=== PATIENT | male | born 1990 | race Caucasian/White ===

== ENCOUNTER 2022-12-30 20:28 | Emergency (ER) | payer BC, SELFPAY ==
[2022-12-30 20:30] VITALS: BP 133/86; PULSE 84; RESP 16; TEMP 36.9; O2SAT 98; BMI 26.7
--- NOTE | 2022-12-30 20:45 | ED.VIS.GI ---
HPI HPI - GI History of Present Illness Chief Complaint: Diarrhea Informant: patient Narrative Narrative: Sent from urgent care for evaluation. She reports 4 days of diarrhea. States day 1 initial attempted bowel movement noted only blood. History of hemorrhoids. That resolved. Clinic started having multiple bouts of loose stools nonbloody. Had 2 today. No recent antibiotics. No fevers. No nausea or vomiting. Tolerating oral fluids. He went to urgent care, he reports on exam when she pushed there was pain. He was sent here for concerns of diverticulitis. He has no fevers. There was no other sick contacts. Prior similar symptoms: No PFSH PFSH Home Medications omeprazole 20 mg tablet,delayed release 20 mg PO DAILY 12/30/22 [History Last Taken Unknown] sertraline 100 mg tablet 100 mg PO DAILY 12/30/22 [History Last Taken Unknown] Allergy/AdvReac Type Severity Reaction Status Date / Time No Known Allergies Allergy Verified 12/30/22 20:31 Social History Smoking Status: Never smoker ROS ROS ED Constitutional Constitutional ED: Denies chills, fever(s) or sweats Eyes Eyes: Denies change in vision ENT ENT ED: Denies dysphagia or sore throat Cardiovascular Cardiovascular: Denies chest pain, leg edema, palpitations or racing heartbeat Respiratory/Chest Respiratory/Chest: Denies cough, dyspnea or dyspnea on exertion Gastrointestinal Gastrointestinal: Reports diarrhea; Denies abdominal pain, nausea or vomiting Genitourinary Genitourinary ED: Denies dysuria, hematuria or urinary frequency Musculoskeletal Musculoskeletal: Denies back pain, extremity pain or neck pain Integumentary Denies rash or wounds Neurologic Neurologic: Denies headache(s), paresthesias or weakness EXAM Physical Exam Const Vital Signs: 12/30/22 20:30 12/30/22 21:56 Temperature 98.4 F Temperature Source Temporal Pulse Rate 84 80 Respiratory Rate 16 16 Blood Pressure 133/86 H 130/80 H Blood Pressure Mean 101 Pulse Ox 98 Oxygen Delivery Method Room Air Positive well nourished and well developed General Appearance ED: well developed and NAD HEENT Reports moist mucous membranes normocephalic and atraumatic Eyes PERRL, EOMs intact bilaterally and conjunctivae normal General Eye ED: Yes normal appearance of both eyes Neck no lymphadenopathy and supple General: Negative for tenderness Chest Wall Chest: Negative for tenderness Resp normal respiratory effort and normal air movement Effort and Inspection: symmetric chest movement; Negative for respiratory distress Cardio regular rate, regular rhythm and no murmurs Peripheral Pulses: pulses 2+ throughout GI normal to inspection, nondistended, normoactive bowel sounds GI Narrative: Very mild tenderness to deep palpation left lower quadrant, no guarding or rebound. Negative Calderon's McBurney's tenderness. Palpation: Negative for guarding or rebound tenderness present Back/Spine no CVA tenderness and no thoracic nor lumbar tenderness Extremity normal to inspection General Extremety ED: Negative for edema or tenderness General Extremity: Negative for edema Neuro oriented x3 and no sensory deficits noted Sensorium / Orientation: awake and alert Skin no rashes or lesions noted and no wounds MDM MDM MDM Narrative Medical decision making narrative: Interventions / MDM: Differential diagnosis: Nonspecific diarrhea, electrolyte abnormalities Diagnosis considered but do not suspect: Diverticulitis, low suspicion due to very minimal tenderness. Afebrile. C. difficile, however no recent antibiotics. My EKG interpretation: N/A Imaging independently reviewed and interpreted by myself: N/A External documents reviewed: N/A Test considered but not ordered:N/A ED course: Patient nonsurgical abdomen. Minimal tenderness to deep palpation. Discussed with patient I do not feel clinically has diverticulitis. He is reassured. I did check labs White count 6 hemoglobin 14.7 electrolytes are normal. Ordered for stools however is unable to provide a stool sample for further testing. Re-evaluation: stable. Stool collection specimen kit sent with patient as he appointment with his PCP in 4 days, discussed if it persist to have a sample today prior so he can be sent to lab for further testing. He did further states with the darker colored stools today he took Pepto-Bismol yesterday. This explains his symptoms. This is not bloody stools. Return precaution discussed. All questions were answered. Disposition discussed with patient/family/significant other: Patient Case discussed with consulting clinician: N/A Lab Data Attestation: I reviewed the patient's lab results. Labs: Laboratory Results - last 24 hr 12/30/22 12/30/22 20:44 20:44 WBC 6.0 RBC 5.05 Hgb 14.7 Hct 43.0 MCV 85.1 MCH 29.1 MCHC 34.2 RDW Std Deviation 39.8 RDW Coeff of Asha 12.9 Plt Count 307 MPV 10.6 Immature Gran % (Auto) 0.200 Neut % (Auto) 39.4 L Lymph % (Auto) 48.7 H Benton % (Auto) 10.0 Eos % (Auto) 1.2 Baso % (Auto) 0.5 Absolute Neuts (auto) 2.4 Absolute Lymphs (auto) 2.91 Nucleated RBC % 0 Sodium 140 Potassium 3.6 Chloride 105 Carbon Dioxide 28.0 Anion Gap 7 BUN 13 Creatinine 1.10 Estim Creat Clear Calc 114.17 Est GFR (MDRD) Af Amer 101 Est GFR (MDRD) Non-Af 83 BUN/Creatinine Ratio 11.8 Glucose 131 H Calcium 8.6 Discharge Plan Triage Chief Complaint: Diarrhea ED Provider: Tobias Birmingham Dx/Rx/DC Orders Clinical Impression: Diarrhea Instructions: ED Diarrhea, Unknown Cause Prescriptions: No Action sertraline 100 mg Tablet 100 mg PO DAILY omeprazole 20 mg Tablet,Delayed Release (Dr/Ec) 20 mg PO DAILY Primary Care Provider: Anthony Shelby Referrals: Anthony Shelby MD [Primary Care Provider] - Keep Alc[facility] appointment Activity Restrictions/Additional Instructions: Your blood work is normal, WBC 6. Normal kidney function, normal electrolytes. Continue oral fluids. Collect stools the day before your doctors visit if you continue to have them for further testing as you are unable to provide a sample here. Return if worsening symptoms. Disposition Disposition: Home, Self Care Discharge Date/Time: 12/30/22 21:59
[2022-12-30 20:56] LABS: Absolute Lymphocyte Count 2.91 X10^3/uL (0.83-4.51); Absolute Neutrophil Count 2.4 X10^3/uL (2.0-7.7); Basophil# 0.03 X10^3/uL; Basophil% 0.5 % (0-1); Eosinophil# 0.07 X10^3/uL; Eosinophils% 1.2 % (0-5); Hemoglobin 14.7 g/dL (13.0-16.5); Lymphocyte # 2.91 X10^3/ul (0.83-4.51); Lymphocyte % 48.7 % (19-41); Mean Corp Hgb Conc 34.2 g/dL (32-36); Mean Corpuscular Hgb 29.1 pg (27.0-32.0); Mean Corpuscular Volume 85.1 fL (80-94); Mean Platelet Vol. 10.6 fl (6.2-12.0); NRBC Flagged by Analyzer 0 % (0-5); Neutrophil # 2.36 X10^3/uL (2.7-7.7); Neutrophil % 39.4 % (47-70); Platelet Count 307 K/mm3 (150-450); RBC Distribution Width CV 12.9 % (11.6-14.6); RBC Distribution Width SD 39.8 fl (35.1-43.9); Red Blood Count 5.05 M/mm3 (4.6-6.2)
[2022-12-30 21:07] LABS: Anion Gap 7 (5-15); BUN 13 mg/dL (7-18); BUN/Creat Ratio 11.8 RATIO (10-20); Calcium,Total 8.6 mg/dL (8.5-10.1); Chloride 105 mmol/L (98-107); EST Glomerular Filtration Rate 83 mL/min (>60); Est Glom Filt Rate - Afr Amer 101 mL/min (>60); Estimated Creatinine Clearance 114.17 ml/min; Glucose 131 mg/dL (74-106); Potassium 3.6 mmol/L (3.5-5.1); Sodium Level 140 mmol/L (136-145)
[2022-12-30 21:56] VITALS: BP 130/80; PULSE 80; RESP 16
== END 2022-12-30 21:59 | disposition home or self-care (01) ==
PROVIDERS: Emergency Provider Emergency Medicine; PCP Internal Medicine; Visit Provider Emergency Medicine
DX: R19.7 Diarrhea, unspecified (principal); Z87.19 Personal history of other diseases of the digestive system
CPT/HCPCS: 80048; 85025; 99283; A4216